=== PATIENT | male | born 1955 | race African-American/Black ===

== ENCOUNTER 2017-11-02 11:57 | Emergency (ER) | payer MEDICARE ==
[2017-11-02 13:07] LABS: ADD MAN DIFF? NO; BASO # 0.1 x10^3/uL (0.0-0.2); BASO % 1 % (0-3); EOS % 0 % (0-3); HEMATOCRIT 29.9 % (39.0-53.0); HEMOGLOBIN 10.1 g/dL (13.0-17.5); LYMPH # 0.6 x10^3/uL (1.0-4.8); LYMPH % 9 % (24-48); MEAN CORPUSCULAR HEMOGLOBIN 35 pg (25-35); MEAN CORPUSCULAR HGB CONC 34 g/dL (31-37); MEAN CORPUSCULAR VOLUME 103 fL (79-100); MONO # 0.5 x10^3/uL (0.0-1.1); MONO % 8 % (0-9); NEUT # 5.7 x10^3uL (1.8-7.7); NEUT % 82 % (31-73); PLATELET COUNT 292 x10^3/uL (140-400); RED BLOOD COUNT 2.89 x10^6/uL (4.30-5.70); RED CELL DISTRIBUTION WIDTH 14.1 % (11.5-14.5); WHITE BLOOD COUNT 6.9 x10^3/uL (4.0-11.0)
[2017-11-02 13:27] LABS: ANION GAP 12 (6-14); BLOOD UREA NITROGEN 4 mg/dL (8-26); BUN/CREATININE RATIO 6 (6-20); CALCIUM 8.3 mg/dL (8.5-10.1); CARBON DIOXIDE 24 mmol/L (21-32); CHLORIDE 104 mmol/L (98-107); CREATININE 0.7 mg/dL (0.7-1.3); GFR 137.4; GLUCOSE 75 mg/dL (70-99); POTASSIUM 3.6 mmol/L (3.5-5.1); SODIUM 140 mmol/L (136-145)
[2017-11-02 13:32] LABS: ETHANOL < 10 mg/dL (0-10)
[2017-11-02 13:36] LABS: TROPONINI < 0.017 ng/mL (0.000-0.055)
[2017-11-02 13:38] LABS: INR 1.4 (0.8-1.1); PROTHROMBIN TIME PATIENT 16.8 SEC (11.7-14.0)
[2017-11-02 13:41] LABS: THYROID STIM HORMONE (TSH) 2.575 uIU/mL (0.358-3.74)
[2017-11-02 13:41] LABS: ALBUMIN 1.9 g/dL (3.4-5.0); ALBUMIN/GLOBULIN RATIO 0.4 (1.0-1.7); ALK PHOS 395 U/L (46-116); ALT (SGPT) 30 U/L (16-63); AST (SGOT) 60 U/L (15-37); LIPASE 161 U/L (73-393); MAGNESIUM 2.2 mg/dL (1.8-2.4); TOTAL BILIRUBIN 2.9 mg/dL (0.2-1.0); TOTAL PROTEIN 6.8 g/dL (6.4-8.2)
[2017-11-02 13:47] LABS: NT-PRO BNP 454 pg/mL (0-124)
[2017-11-02 13:48] LABS: CKMB MASS < 0.5 ng/mL (0.0-3.6); CREATINE KINASE 48 U/L (39-308)
[2017-11-02 13:58] LABS: BILIRUBIN,URINE MODERATE (NEG); CLARITY,URINE CLEAR; COLOR,URINE AMBER; GLUCOSE,URINE NEGATIVE (NEG); NITRITE,URINE NEGATIVE (NEG); PROTEIN,URINE NEGATIVE (NEG-TRACE); UROBILINOGEN,URINE 0.2 mg/dL (0.2 mg/dL)
[2017-11-02 14:02] LABS: BARBITURATES NEG (NEG); BENZODIAZEPINES NEG (NEG); CANNABINOIDS NEG (NEG); COCAINE NEG (NEG); METHADONE NEG (NEG); OPIATES NEG (NEG); PHENCYCLIDINE NEG (NEG)
[2017-11-02 14:06] LABS: AMPHETAMINE/METHAMPHETAMINE NEG (NEG); ETHANOL, URINE NEG (NEG)
[2017-11-02 14:21] LABS: BACTERIA,URINE 0 /HPF (0-FEW); RBC,URINE 0 /HPF (0-2); SQUAMOUS EPITHELIAL CELL,UR FEW /LPF
[2017-11-02 14:34] LABS: PROCALCITONIN 0.22 ng/mL (0.00-0.10)
[2017-11-02] MEDS ORDERED: CONTRAST GIVEN. MC (15:15)
[2017-11-02] MEDS ORDERED: IOHEXOL 300 MG/ML 100ML VIAL. IV (15:15)
== END 2017-11-02 15:23 | disposition left against medical advice (07) ==
LOC: ER 15:23
DX: R60.0 Localized edema (principal)
CPT/HCPCS: 36415; 71045; 80053; 80307; 81001; 82553; 83605; 83690; 83735; 83880; 84145; 84443; 84484; 85025; 85610; 87040; 93005; 99285-25; G0480